=== PATIENT | male | born 1955 | race Caucasian/White ===

== ENCOUNTER 2023-02-19 03:18 | Emergency (ER) | payer MEDICARE ==
[~2023-02-19] VITALS: Ht 188 cm; Wt 104.5 kg
[2023-02-19] MEDS ORDERED: HYDROcodone/acetaminophen 5mg/325mg tablet PO ONE (06:55)
[2023-02-19] MEDS ORDERED: naproxen 500mg tablet PO ONE (06:55)
[2023-02-19] MEDS ORDERED: cyclobenzaprine 10mg tablet PO ONE (06:55)
--- NOTE | 2023-02-19 11:01 | NUR ---
patient ambulated with guarded gait for 30 feet,
[2023-02-19] MEDS ORDERED: TRAM50TA2 PO (11:12)
[2023-02-19 11:49] VITALS: BP 158/92; PULSE 94; RESP 12; TEMP 97.7; O2SAT 100
== END 2023-02-19 11:42 | disposition home or self-care (01) ==
LOC: ER 03:20
DX: M54.9 Dorsalgia, unspecified (principal); I10 Essential (primary) hypertension; G89.29 Other chronic pain; F17.200 Nicotine dependence, unspecified, uncomplicated; W19.XXXA Unspecified fall, initial encounter; Y93.89 Activity, other specified; Y92.89 Other specified places as the place of occurrence of the external cause; Y99.8 Other external cause status
CPT/HCPCS: 72128; 72131; 72170; 99284